=== PATIENT | female | born 1985 | race Caucasian/White ===

== ENCOUNTER → 2016-10-16 | Outpatient (CLI) | payer OTHER ==
[~2016-10-16] MED LIST: IBUP-232 PO; NEEVCAP PO; PERC5TAB12 PO
== END ==
LOC: CLAB 15:19
PROVIDERS: ATTEND Obstetrics & Gynecology
DX: O36.0190 Maternal care for anti-D [Rh] antibodies, unspecified trimester, not applicable or unspecified (principal)
CPT/HCPCS: 36415; 86850; 86900; 86901; 90384; 96372; J2790

== ENCOUNTER 2016-12-17 06:16 | Inpatient (IN) | payer OTHER ==
[2016-12-17] VITALS (30 sets, daily range): BP systolic 99–124; BP diastolic 58–99; PULSE 61–120; RESP 16–18; TEMP 98.7
[~2016-12-17] VITALS: Ht 172.7 cm; Wt 80.7 kg
[~2016-12-17 06:16] MED LIST changes: -IBUP-232 PO
[2016-12-17] MEDS ORDERED: LACTATED RINGER'S 1000 ML BOLUS IV PRN (06:30)
[2016-12-17] MEDS ORDERED: CITRIC ACID-SODIUM CITRATE LIQ 30 ML UDC PO SCH (06:30)
[2016-12-17] MEDS ORDERED: OXYTOCIN 30 UNITS/NS 500ML PREMIX IV SCH (06:30)
[2016-12-17] MEDS ORDERED: ONDANSETRON HCL 4 MG/2 ML VIAL IV PRN (06:30)
[2016-12-17] MEDS ORDERED: NS 500 ML BOLUS IV PRN (06:30)
[2016-12-17] MEDS ORDERED: LIDOCAINE HCL 1% 50 ML VIAL INFIL PRN (06:30)
[2016-12-17] MEDS ORDERED: OXYTOCIN 30 UNITS 500ML PREMIX IV ONE (06:30)
[2016-12-17] MEDS ORDERED: LIDOCAINE HCL 1% 50 ML VIAL I-DERMAL PRN (06:30)
[2016-12-17] MEDS ORDERED: MINERAL OIL 10 ML VIAL TOPICAL PRN (06:30)
[2016-12-17] MEDS ORDERED: NS 1000 ML IV PRN (06:30)
[2016-12-17 07:39] LABS: AUTOMATED NEUTROPHIL # 7.7 TH/MM3 (1.8-7.7); BASOPHIL # 0.1 TH/MM3 (0-0.2); BASOPHIL % 0.7 % (0.0-2.0); EOSINOPHIL # 0.1 TH/MM3 (0-0.4); EOSINOPHIL % 0.8 % (0.0-4.0); HEMATOCRIT 30.3 % (35.0-46.0); LYMPH % 17.9 % (9.0-44.0); LYMPHOCYTE # 1.9 TH/MM3 (1.0-4.8); MEAN CELL VOLUME 73.2 FL (80.0-100.0); MEAN CORPUSCULAR HEMOGLOBIN 23.3 PG (27.0-34.0); MEAN CORPUSCULAR HGB CONC 31.8 % (32.0-36.0); MONO % 7.2 % (0.0-8.0); NEUT % 73.4 % (16.0-70.0); PLATELET COUNT 270 TH/MM3 (150-450); RED BLOOD COUNT 4.14 MIL/MM3 (4.00-5.30); RED CELL DISTRIBUTION WIDTH 15.2 % (11.6-17.2); WHITE BLOOD COUNT 10.6 TH/MM3 (4.0-11.0)
[2016-12-17 07:41] LABS: HEMO FLAGS AUTO DIFF
[2016-12-17 07:44] LABS: BLOOD, URINE NEG (NEG); COMMENT (UR) CULT NOT INDICATED; CULTURE IF INDICATED CULT NOT INDICATED; GLUCOSE,URINE NEG (NEG); KETONE, URINE NEG (NEG); NITRITE,URINE NEG (NEG); SQUAMOUS EPITHELIAL CELL URINE <1 /hpf (0-5); URINE COLOR LIGHT-YELLOW (YELLW/STRAW)
[2016-12-17] MEDS: LACTATED RINGER'S 1000 ML IV SCH ×2 (08:01→13:40)
[2016-12-17 08:32] LABS: SCAN/DIFF AUTO DIFF CONFIRMED; TEARDROP RBCS 1+ (NORMAL)
[2016-12-17] MEDS ORDERED: fentaNYL 2MCG-BUPIV 0.125% INJ 100 ML ONE (11:09)
[2016-12-17] MEDS ORDERED: ePHEDrine/NS 25 MG/5 ML SYR ONE (11:10)
--- NOTE | 2016-12-17 15:06 | PD.OB.DELI ---
Anesthesia: Epidural Episiotomy: None Vaginal Delivery: Normal Presentation: Occiput posterior Nuchal Cord: None Delayed cord clamping (45 sec): Yes Infant: Male One Minute : 8 Five Minute : 9 Weight: 7\15 Placenta: Spontaneous delivery, Intact, 3 vessel cord Laceration: No lacerations Additional Information nice delivery of [place] by Dr Leo I was in a very difficult C/S. Missed delivery by 30 seconds. No lacerations Linda Berkowitz MD December 17, 2016 15:06
[2016-12-17] MEDS ORDERED: BENZOCAINE 20% TOPICAL SPRAY 60 ML CAN TOPICAL PRN (15:15)
[2016-12-17] MEDS ORDERED: ONDANSETRON ODT 4 MG TAB PO PRN (15:15)
[2016-12-17] MEDS ORDERED: ALUMINUM/MAGNESIUM/SIMETH 30 ML CUP PO PRN (15:15)
[2016-12-17] MEDS ORDERED: ZOLPIDEM TARTRATE 5 MG TAB PO PRN (15:15)
[2016-12-17] MEDS ORDERED: DOCUSATE SODIUM 50 MG/SENNA 8.6 MG TAB PO PRN (15:15)
[2016-12-17] MEDS ORDERED: ACETAMINOPHEN 325 MG TAB PO PRN (15:15)
[2016-12-17] MEDS ORDERED: OXYTOCIN 30 UNITS-500ML PREMIX 500 ML IV ONE (15:15)
[2016-12-17] MEDS ORDERED: oxyCODONE/ACETAMINOPHEN 5 MG/325 MG TAB PO PRN ×2 (15:15)
[2016-12-17] MEDS ORDERED: SODIUM CHLORIDE 0.9% FLUSH 10 ML FLUSH IV FLUSH PRN (15:15)
[2016-12-17] MEDS ORDERED: WITCH HAZEL 50%/GLYCERIN 12.5% 40 PAD JAR TOPICAL PRN (15:15)
[2016-12-17] MEDS ORDERED: DIPHTH/TETANUS/ACEL PERTUSSIS (BOOSTER) 0.5 ML VIAL/PFS IM ONE (16:00)
[2016-12-17] MEDS ORDERED: MEASLES, MUMPS, RUBELLA VACCINE 0.5 ML VIAL SQ ONE (16:00)
[2016-12-17] MEDS ORDERED: SODIUM CHLORIDE 0.9% FLUSH 10 ML FLUSH IV FLUSH SCH (21:00)
[2016-12-17] MEDS: IBUPROFEN 600 MG TAB PO PRN (21:01)
[2016-12-18] MEDS: IBUPROFEN 600 MG TAB PO PRN ×2 (06:36→14:28)
[2016-12-18 08:39] VITALS: BP 106/62; PULSE 68; RESP 18; TEMP 97.8
--- NOTE | 2016-12-18 09:28 | HHI.OB ---
Subjective Post Day: 1 Objective Vitals/I&O Vital Signs Date Time Temp Pulse Resp B/P Pulse Ox O2 Delivery O2 Flow Rate FiO2 12/18/16 08:39 97.8 68 18 106/62 12/17/16 22:01 18 12/17/16 20:00 111/65 12/17/16 20:00 98.7 75 18 12/17/16 16:30 79 112/75 12/17/16 16:15 120 115/99 12/17/16 16:00 79 124/67 12/17/16 15:50 16 12/17/16 15:45 62 110/76 12/17/16 15:35 16 12/17/16 15:30 61 111/72 12/17/16 15:20 16 12/17/16 15:15 84 113/72 12/17/16 13:00 16 12/17/16 12:55 90 12/17/16 12:50 116 12/17/16 12:45 93 116/83 12/17/16 12:45 101 12/17/16 12:40 89 12/17/16 12:35 81 12/17/16 12:30 86 106/74 12/17/16 12:30 87 12/17/16 12:30 16 12/17/16 12:25 77 12/17/16 12:20 82 12/17/16 12:15 86 12/17/16 12:15 76 99/58 12/17/16 12:10 71 12/17/16 12:05 81 12/17/16 12:00 80 12/17/16 12:00 79 103/65 12/17/16 11:55 77 102/58 12/17/16 11:55 85 12/17/16 10:43 84 110/91 12/17/16 10:30 16 12/17/16 10:00 16 12/17/16 10:00 76 105/65 12/17/16 09:30 16 12/17/16 09:30 73 106/70 Objective Remarks GENERAL: Well-nourished, well-developed patient. CARDIOVASCULAR: Regular rate and rhythm without murmurs, gallops, or rubs. RESPIRATORY: Breath sounds equal bilaterally. No accessory muscle use. ABDOMEN/GI: Abdomen soft, non-tender. Fundus: Firm, non-tender at umbilicus. GENITOURINARY: Light to moderate bleeding. EXTREMITIES: No cyanosis or edema, non-tender, without signs of DVT. Medications and IVs Current Medications Medications (Trade) Dose Ordered Sig/Florencio Route Start Time Stop Time Status Last Admin (NS Flush) 2 ml BID IV FLUSH 12/17/16 21:00 (NS Flush) 2 ml UNSCH PRN IV FLUSH 12/17/16 15:15 (Tylenol) 650 mg Q4H PRN PO 12/17/16 15:15 (Motrin) 600 mg Q6H PRN PO 12/17/16 15:15 12/18/16 06:36 (Percocet 5-325 Mg) 1 tab Q4H PRN PO 12/17/16 15:15 (Percocet 5-325 Mg) 2 tab Q4H PRN PO 12/17/16 15:15 (Americaine 20% Top Spr) 1 spray Q4H PRN TOPICAL 12/17/16 15:15 (Tucks Pads) 1 applic QID PRN TOPICAL 12/17/16 15:15 (Nora-Colace) 2 tab Q12H PRN PO 12/17/16 15:15 (Ambien) 5 mg HS PRN PO 12/17/16 15:15 (Mag-Al Plus Susp Liq) 15 ml Q8H PRN PO 12/17/16 15:15 (Zofran Odt) 4 mg Q6H PRN PO 12/17/16 15:15 Assessment/Plan Problem List: (1) Vaginal delivery Plan: ROUTINE (2) Anemia Plan: WILL TREAT POST WITH ORAL DAILY IRON Assessment and Plan PT DOING WELL BONDING WITH PAIN MANAGED WITH MORTIN ROUTINE Discharge Planning DC HOME TODAY Magda Huang December 18, 2016 09:28
[2016-12-18] MEDS ORDERED: IBUP-232 PO (09:30)
--- NOTE | 2016-12-18 09:32 | HHI.DCPOC ---
Discharge Care Plan Diagnosis: (1) Vaginal delivery (2) Anemia Your Health Problems Are: Vaginal delivery Additional Problems TAKE DAILY ORAL IRON FOR ANEMIA, WATCH FOR CONSTIPATION Report Symptoms to Your Doctor -Temperate above 100.5 degrees -Redness, of incision or excessive or foul smelling drainage -Unusual pain or calf pain -Increased vaginal bleeding -Painful or difficulty urinating -Feelings of extreme sadness or anxiety after 2 weeks Goals to Promote Your Health * To prevent worsening of your condition and complications * To maintain your health at the optimal level Directions to Meet Your Goals Take your medications as prescribed Follow your dietary instruction Follow activity as directed Ensure plenty of rest for recovery Drink fluids for hydration Keep your appointments as scheduled Take your immunizations and boosters as scheduled If your symptoms worsen call your PCP, if no PCP go to Urgent Care Center or Emergency Room Smoking is Dangerous to Your Health. Avoid second hand smoke Call the 24-hour crisis hotline for domestic abuse at Magda Huang December 18, 2016 09:31
--- NOTE | 2016-12-18 09:33 | HHI.DS ---
Admission Date December 17, 2016 at 06:16 Discharge Date: December 18, 2016 Admitting Diagnosis TERM INDUCTION Diagnosis: (1) Anemia Diagnosis: Secondary (2) Vaginal delivery Diagnosis: Principal Delivery Date: December 17, 2016 Vaginal Delivery: Normal : Male Brief History TERM INDUCTION Hospital Course ROUTINE Pt Condition on Discharge: Good Discharge Disposition: Discharge Home Discharge Instructions Diet Instructions: As Tolerated, No Restrictions Additional Diet Instructions: Drink at least 8 - 16 oz bottles of water a day Activities You Can Perform: Shower Only-No Bath, Sitz Bath Activities to Avoid: Lifting/Bending, Sexual Activity Additional Activity Instruc.: No driving until off pain medications Do not lift anything heavier than your baby in an infant carrier Follow up Referrals: [facility] - 2 Weeks @ [facility] [place] New Medications: Ibuprofen (Ibuprofen) 600 Mg Tab 600 MG PO Q6H MODERATE PAIN #30 Ref 1 TAB Continued Medications: Without A W/ Fe Fumar (Pnv-Dha Plus) Cap 1 PO Magda Huang December 18, 2016 09:33
== END 2016-12-18 15:34 | disposition home or self-care (01) | DRG 775 ==
LOC: H2EA 06:16 → H1EA 16:54
PROVIDERS: ADMIT Obstetrics & Gynecology; ATTEND Obstetrics & Gynecology
PROC: 10E0XZZ Delivery of Products of Conception, External Approach (ICD-10-PCS; principal; 2016-12-17)
DX: O99.02 Anemia complicating childbirth (principal); Z37.0 Single live birth; Z3A.39 39 weeks gestation of pregnancy
CPT/HCPCS: 81001; 85025; 85461; 86850; 86900; 86901; 90384; 90715; J2590; J2790; J7120